=== PATIENT | female | born 1940 | race Caucasian/White ===

== ENCOUNTER 2020-07-18 09:25 | Emergency (ER) | payer MEDICARE ==
[~2020-07-18] VITALS: Ht 165.1 cm; Wt 71.3 kg
--- NOTE | 2020-07-18 09:30 | NUR ---
BIB [facility]- slipped and fell getting into shower this morning. C/o R ankle pain, no other injuries. Pt reports pain 9/10, CMS intact, ice pack in place. Pt positioned for comfort in bed, continuous oxygen and BP monitors applied, all safety measures observed.
[2020-07-18] MEDS ORDERED: POLY17PO5 PO (09:42)
[2020-07-18] MEDS ORDERED: CYAN1TAB29 PO (09:42)
[2020-07-18] MEDS ORDERED: MELA1TAB46 PO (09:42)
[2020-07-18] MEDS ORDERED: ASPI-1026 PO (09:42)
[2020-07-18] MEDS ORDERED: ALBU8.5H8 INH (09:42)
[2020-07-18] MEDS ORDERED: CHOL10003 PO (09:42)
[2020-07-18] MEDS ORDERED: OMEP-110 PO (09:42)
[2020-07-18] MEDS ORDERED: LORA10TA75 PO (09:42)
[2020-07-18] MEDS ORDERED: IPRA15SP NAS (09:42)
[2020-07-18] MEDS ORDERED: MULT-257 PO (09:42)
[2020-07-18] MEDS ORDERED: LORA-445 PO (09:42)
[2020-07-18] MEDS ORDERED: ATOR-2 PO (09:42)
[2020-07-18] MEDS ORDERED: MONT10TA17 PO (09:42)
[2020-07-18] MEDS ORDERED: ONDANSETRON 2MG/ML, 2ML ONE ×2 (09:47→12:22)
[2020-07-18] MEDS ORDERED: MORPHINE SULFATE 4 MG/ML, 1ML ONE ×2 (09:48→10:36)
[2020-07-18] MEDS: MORPHINE SULFATE 4 MG/ML, 1ML IVPush PRN ×2 (09:56→10:38)
--- NOTE | 2020-07-18 09:58 | NUR ---
Pt medicated for 9/10 ankle pain per MAR.
[2020-07-18] MEDS ORDERED: ONDANSETRON 2MG/ML, 2ML IVPush ONE ×2 (10:00→12:30)
[2020-07-18] MEDS ORDERED: SODIUM CHLORIDE FLUSH 10ML SYR IVF ONE (10:00)
--- NOTE | 2020-07-18 10:20 | NUR ---
Pt reports pain improved after medications. Pt unable to quantify with a number on WongBaker scale, but reports "it's better". Pt declines additional pain medication offered.
--- NOTE | 2020-07-18 10:38 | NUR ---
Pt positioned for comfort in bed, now requesting additional pain medication. Pt medicated per JUN.
--- NOTE | 2020-07-18 11:42 | NUR ---
Pt reports pain improved after medications. EMT in to apply splint.
--- NOTE | 2020-07-18 11:48 | NUR ---
Pt placed on bedpan
--- NOTE | 2020-07-18 12:20 | NUR ---
Pt c/o continued nausea. Discussed with Yenifer BRINK, orders recieved for second dose 4mg Zofran IVP.
--- NOTE | 2020-07-18 12:25 | NUR ---
Pt medicated per JUN. Meal tray ordered for pt.
--- NOTE | 2020-07-18 12:50 | NUR ---
Pt reports nausea improved after medications given.
[2020-07-18 12:58] VITALS: BP 134/65
== END 2020-07-18 13:01 | disposition home or self-care (01) ==
LOC: ED 10:54
DX: S82.851A Displaced trimalleolar fracture of right lower leg, initial encounter for closed fracture (principal); M79.89 Other specified soft tissue disorders; X58.XXXA Exposure to other specified factors, initial encounter; Y93.89 Activity, other specified; Y92.89 Other specified places as the place of occurrence of the external cause; Y99.8 Other external cause status
CPT/HCPCS: 29515; 73590; 73610; 96374; 96375; 96376; 99284; J2270; J2405